=== PATIENT | male | born 1950 | race Caucasian/White ===

== ENCOUNTER 2018-07-06 08:54 | Inpatient (IN) | payer BC, MEDICARE ==
[2018-07-06] MEDS ORDERED: BISACODYL 10 MG SUPP PR (09:45)
[2018-07-06] MEDS ORDERED: ONDANSETRON 4MG/2ML VIAL (J2405) IV (09:45)
[2018-07-06 10:31] LABS: BEDSIDE GLUCOSE 520 MG/DL (80-115)
[2018-07-06] MEDS: INSULIN IV RATE CHANGE DOCUMENTATION ML/HR XX ×4 (10:40→15:23)
[2018-07-06] MEDS ORDERED: DEXTROSE 50% 50 ML SYRINGE IV (10:45)
[2018-07-06] MEDS ORDERED: GLUCOSE 4 GM CHEW TABLET PO (10:45)
[2018-07-06] MEDS ORDERED: GLUCAGON FOR INJ 1 MG VIAL (J1610) SC (10:45)
[2018-07-06] MEDS ORDERED: INSULIN HUMAN REGULAR 100 UNITS in NS 99 ML IV (11:00)
[2018-07-06 11:08] LABS: ALBUMIN 2.9 GM/DL (3.2-5.2); ALKALINE PHOSPHATASE 651 U/L (45-117); ALT/SGPT 92 U/L (12-78); ANION GAP 9 MEQ/L (8-16); AST/SGOT 54 U/L (7-37); BILIRUBIN,TOTAL 0.5 MG/DL (0.2-1.0); BLOOD UREA NITROGEN 78 MG/DL (7-18); CALCIUM LEVEL 8.9 MG/DL (8.8-10.2); CARBON DIOXIDE LEVEL 29 MEQ/L (21-32); CHLORIDE LEVEL 116 MEQ/L (98-107); CREATININE FOR GFR 2.39 MG/DL (0.70-1.30); GLOMERULAR FILTRATION RATE 29.1 (>49); GLUCOSE, FASTING 562 MG/DL (70-100); LIPASE 169 U/L (73-393); PHOSPHORUS LEVEL 4.4 MG/DL (2.5-4.9); SODIUM LEVEL 154 MEQ/L (136-145); TOTAL PROTEIN 7.7 GM/DL (6.4-8.2)
[2018-07-06] MEDS: INSULIN HUMAN REGULAR 100 UNITS in NS 99 ML IV (11:29)
[2018-07-06] MEDS: NS 1,000 ML IV ×3 (11:29→23:13)
[2018-07-06 11:37] LABS: BEDSIDE GLUCOSE 488 MG/DL (80-115)
[2018-07-06 12:27] LABS: BEDSIDE GLUCOSE 398 MG/DL (80-115)
[2018-07-06 12:31] LABS: ANION GAP 7 MEQ/L (8-16); BLOOD UREA NITROGEN 81 MG/DL (7-18); CARBON DIOXIDE LEVEL 29 MEQ/L (21-32); CHLORIDE LEVEL 117 MEQ/L (98-107); CREATININE FOR GFR 2.47 MG/DL (0.70-1.30); GLUCOSE, FASTING 469 MG/DL (70-100); POTASSIUM SERUM 3.9 MEQ/L (3.5-5.1); SODIUM LEVEL 153 MEQ/L (136-145)
[2018-07-06 13:25] LABS: BEDSIDE GLUCOSE 397 MG/DL (80-115)
[2018-07-06 14:05] LABS: ANION GAP 8 MEQ/L (8-16); BLOOD UREA NITROGEN 80 MG/DL (7-18); CALCIUM LEVEL 9.1 MG/DL (8.8-10.2); CARBON DIOXIDE LEVEL 31 MEQ/L (21-32); CHLORIDE LEVEL 117 MEQ/L (98-107); CREATININE FOR GFR 2.49 MG/DL (0.70-1.30); GLOMERULAR FILTRATION RATE 27.8 (>49); GLUCOSE, FASTING 384 MG/DL (70-100); POTASSIUM SERUM 3.9 MEQ/L (3.5-5.1); SODIUM LEVEL 156 MEQ/L (136-145)
[2018-07-06 14:14] LABS: BEDSIDE GLUCOSE 351 MG/DL (80-115)
[2018-07-06] MEDS: HEPARIN SOD (PORCINE) 5000 UNITS/ML VIAL SC ×2 (14:16→21:06)
[2018-07-06] MEDS ORDERED: LEVEMIR (INSULIN DETEMIR) 1 UNITS/0.01ML As Ordered (15:10)
[2018-07-06] MEDS: LEVEMIR (INSULIN DETEMIR) 1 UNITS/0.01ML SC (15:11)
[2018-07-06 15:24] LABS: BEDSIDE GLUCOSE 296 MG/DL (80-115)
[2018-07-06] MEDS: MUPIROCIN 2% OINT 22 GM TUBE TOP (15:35)
[2018-07-06 15:51] LABS: ESTIMATED AVERAGE GLUCOSE 266 MG/DL (60-110); HEMOGLOBIN A1c 10.9 %
[2018-07-06 15:55] LABS: ACETONE/KETONE 0.83 MG/DL (<2.81); ANION GAP 7 MEQ/L (8-16); BLOOD UREA NITROGEN 79 MG/DL (7-18); CALCIUM LEVEL 8.9 MG/DL (8.8-10.2); CARBON DIOXIDE LEVEL 28 MEQ/L (21-32); CHLORIDE LEVEL 120 MEQ/L (98-107); GLUCOSE, FASTING 306 MG/DL (70-100); POTASSIUM SERUM 4.1 MEQ/L (3.5-5.1); SODIUM LEVEL 155 MEQ/L (136-145)
[2018-07-06 16:00] LABS: OSMOLALITY SERUM 360 MOSM/KG (280-301)
[2018-07-06 16:31] LABS: BEDSIDE GLUCOSE 269 MG/DL (80-115)
[2018-07-06 17:26] LABS: BEDSIDE GLUCOSE 235 MG/DL (80-115)
[2018-07-06] MEDS: HumaLOG INSULIN (NovoLOG) PER UNIT SC ×2 (17:44→21:05)
[2018-07-06] MEDS: amLODIPine 10 MG TAB PO (17:44)
[2018-07-06 17:56] LABS: ANION GAP 4 MEQ/L (8-16); BLOOD UREA NITROGEN 81 MG/DL (7-18); CALCIUM LEVEL 9.2 MG/DL (8.8-10.2); CARBON DIOXIDE LEVEL 32 MEQ/L (21-32); CHLORIDE LEVEL 120 MEQ/L (98-107); CREATININE FOR GFR 2.22 MG/DL (0.70-1.30); GLOMERULAR FILTRATION RATE 31.7 (>49); GLUCOSE, FASTING 261 MG/DL (70-100); POTASSIUM SERUM 4.2 MEQ/L (3.5-5.1); SODIUM LEVEL 156 MEQ/L (136-145)
[2018-07-06 18:37] LABS: SODIUM,RANDOM URINE 12 MEQ/L
[2018-07-06 19:52] LABS: ANION GAP 8 MEQ/L (8-16); BLOOD UREA NITROGEN 76 MG/DL (7-18); CALCIUM LEVEL 9.1 MG/DL (8.8-10.2); CARBON DIOXIDE LEVEL 28 MEQ/L (21-32); CHLORIDE LEVEL 118 MEQ/L (98-107); GLUCOSE, FASTING 298 MG/DL (70-100); POTASSIUM SERUM 3.9 MEQ/L (3.5-5.1); SODIUM LEVEL 154 MEQ/L (136-145)
[2018-07-06] MEDS: SIMVASTATIN 20 MG TAB PO (20:03)
[2018-07-06] MEDS: TAMSULOSIN 0.4 MG CAP PO (20:04)
[2018-07-06 20:57] LABS: BEDSIDE GLUCOSE 277 MG/DL (80-115)
[2018-07-06] MEDS ORDERED: ENTER DRUG NAME HERE (PATIENT'S OWN MED) OU (21:00)
[2018-07-07] MEDS: NS 1,000 ML IV (05:02)
[2018-07-07] MEDS: HEPARIN SOD (PORCINE) 5000 UNITS/ML VIAL SC ×3 (05:02→21:27)
[2018-07-07 05:06] LABS: HEMATOCRIT 40.9 % (42.0-52.0); HEMOGLOBIN 13.1 g/dl (13.5-17.5); MEAN CORPUSCULAR HEMOGLOBIN 30.5 pg (27.0-33.0); MEAN CORPUSCULAR VOLUME 95.1 fl (80.0-96.0); PLATELET COUNT, AUTOMATED 199 10^3/uL (150-450); RED CELL DISTRIBUTION WIDTH 13.2 % (11.5-14.5); WHITE BLOOD COUNT 13.3 10^3/uL (4.0-10.0)
[2018-07-07 05:31] LABS: ALBUMIN 2.7 GM/DL (3.2-5.2); ALBUMIN/GLOBULIN RATIO 0.79 (1.00-1.93); ALKALINE PHOSPHATASE 528 U/L (45-117); ALT/SGPT 94 U/L (12-78); ANION GAP 8 MEQ/L (8-16); AST/SGOT 92 U/L (7-37); BILIRUBIN,TOTAL 0.5 MG/DL (0.2-1.0); BLOOD UREA NITROGEN 76 MG/DL (7-18); CALCIUM LEVEL 8.4 MG/DL (8.8-10.2); CARBON DIOXIDE LEVEL 26 MEQ/L (21-32); CHLORIDE LEVEL 119 MEQ/L (98-107); CREATININE FOR GFR 1.84 MG/DL (0.70-1.30); GLOMERULAR FILTRATION RATE 39.4 (>49); GLUCOSE, FASTING 350 MG/DL (70-100); POTASSIUM SERUM 4.5 MEQ/L (3.5-5.1); SODIUM LEVEL 153 MEQ/L (136-145); TOTAL PROTEIN 6.1 GM/DL (6.4-8.2)
[2018-07-07] MEDS: HumaLOG INSULIN (NovoLOG) PER UNIT SC ×4 (08:29→21:27)
[2018-07-07] MEDS: LEVEMIR (INSULIN DETEMIR) 1 UNITS/0.01ML SC ×2 (08:29→21:28)
[2018-07-07] MEDS: amLODIPine 10 MG TAB PO (08:31)
[2018-07-07] MEDS: LR 1,000 ML IV ×4 (08:31→23:40)
[2018-07-07] MEDS: MUPIROCIN 2% OINT 22 GM TUBE TOP (08:32)
[2018-07-07 12:42] LABS: BEDSIDE GLUCOSE 492 MG/DL (80-115)
[2018-07-07 16:50] LABS: BEDSIDE GLUCOSE 386 MG/DL (80-115)
[2018-07-07 21:16] LABS: BEDSIDE GLUCOSE 308 MG/DL (80-115)
[2018-07-07] MEDS: TAMSULOSIN 0.4 MG CAP PO (21:26)
[2018-07-08] MEDS: HEPARIN SOD (PORCINE) 5000 UNITS/ML VIAL SC ×3 (05:31→21:08)
[2018-07-08 06:04] LABS: HEMATOCRIT 35.6 % (42.0-52.0); HEMOGLOBIN 12.2 g/dl (13.5-17.5); MEAN CORPUSCULAR HEMOGLOBIN 30.8 pg (27.0-33.0); MEAN CORPUSCULAR HGB CONC 34.3 g/dl (32.0-36.5); MEAN CORPUSCULAR VOLUME 89.9 fl (80.0-96.0); PLATELET COUNT, AUTOMATED 159 10^3/uL (150-450); RED BLOOD COUNT 3.96 10^6/uL (4.30-6.10); WHITE BLOOD COUNT 8.4 10^3/uL (4.0-10.0)
[2018-07-08] MEDS: LR 1,000 ML IV (06:09)
[2018-07-08 06:37] LABS: ALBUMIN 2.3 GM/DL (3.2-5.2); ALBUMIN/GLOBULIN RATIO 0.66 (1.00-1.93); ALKALINE PHOSPHATASE 493 U/L (45-117); ALT/SGPT 104 U/L (12-78); ANION GAP 8 MEQ/L (8-16); AST/SGOT 99 U/L (7-37); BILIRUBIN,TOTAL 0.7 MG/DL (0.2-1.0); BLOOD UREA NITROGEN 40 MG/DL (7-18); CALCIUM LEVEL 8.3 MG/DL (8.8-10.2); CARBON DIOXIDE LEVEL 27 MEQ/L (21-32); CHLORIDE LEVEL 114 MEQ/L (98-107); CREATININE FOR GFR 1.15 MG/DL (0.70-1.30); GLOMERULAR FILTRATION RATE > 60.0 (>49); GLUCOSE, FASTING 262 MG/DL (70-100); POTASSIUM SERUM 3.7 MEQ/L (3.5-5.1); SODIUM LEVEL 149 MEQ/L (136-145); TOTAL PROTEIN 5.8 GM/DL (6.4-8.2)
[2018-07-08] MEDS: MUPIROCIN 2% OINT 22 GM TUBE TOP (09:00)
[2018-07-08] MEDS: amLODIPine 10 MG TAB PO (09:07)
[2018-07-08] MEDS: LEVEMIR (INSULIN DETEMIR) 1 UNITS/0.01ML SC ×2 (09:07→21:09)
[2018-07-08] MEDS: HumaLOG INSULIN (NovoLOG) PER UNIT SC ×4 (10:32→21:09)
[2018-07-08] MEDS: hydroCHLOROthiazide 12.5 MG CAPSULE PO (11:09)
[2018-07-08] MEDS: LOSARTAN 50 MG TAB PO (11:10)
[2018-07-08 11:57] LABS: BEDSIDE GLUCOSE 278 MG/DL (80-115)
[2018-07-08 14:20] LABS: BEDSIDE GLUCOSE > 600 MG/DL (80-115)
[2018-07-08 20:28] LABS: BEDSIDE GLUCOSE 276 MG/DL (80-115)
[2018-07-08] MEDS: LUMIGAN 0.01% EYE DROPS (PATIENT'S OWN MED) OU (21:07)
[2018-07-08] MEDS: ACETAMINOPHEN TAB 650MG DOSE (2X325MG) PO (21:08)
[2018-07-08] MEDS: TAMSULOSIN 0.4 MG CAP PO (21:08)
[2018-07-09] MEDS: HEPARIN SOD (PORCINE) 5000 UNITS/ML VIAL SC (06:22)
[2018-07-09 06:32] LABS: HEMATOCRIT 35.1 % (42.0-52.0); HEMOGLOBIN 12.2 g/dl (13.5-17.5); MEAN CORPUSCULAR HGB CONC 34.8 g/dl (32.0-36.5); MEAN CORPUSCULAR VOLUME 89.1 fl (80.0-96.0); PLATELET COUNT, AUTOMATED 139 10^3/uL (150-450); RED BLOOD COUNT 3.94 10^6/uL (4.30-6.10); RED CELL DISTRIBUTION WIDTH 11.9 % (11.5-14.5); WHITE BLOOD COUNT 8.5 10^3/uL (4.0-10.0)
[2018-07-09 07:04] LABS: ALBUMIN 2.4 GM/DL (3.2-5.2); ALBUMIN/GLOBULIN RATIO 0.65 (1.00-1.93); ALKALINE PHOSPHATASE 576 U/L (45-117); ALT/SGPT 115 U/L (12-78); ANION GAP 6 MEQ/L (8-16); AST/SGOT 102 U/L (7-37); BILIRUBIN,TOTAL 0.8 MG/DL (0.2-1.0); BLOOD UREA NITROGEN 26 MG/DL (7-18); CALCIUM LEVEL 8.4 MG/DL (8.8-10.2); CARBON DIOXIDE LEVEL 30 MEQ/L (21-32); CHLORIDE LEVEL 110 MEQ/L (98-107); CREATININE FOR GFR 1.04 MG/DL (0.70-1.30); GLOMERULAR FILTRATION RATE > 60.0 (>49); GLUCOSE, FASTING 207 MG/DL (70-100); POTASSIUM SERUM 3.5 MEQ/L (3.5-5.1); SODIUM LEVEL 146 MEQ/L (136-145); TOTAL PROTEIN 6.1 GM/DL (6.4-8.2)
[2018-07-09] MEDS: LOSARTAN 50 MG TAB PO (08:27)
[2018-07-09] MEDS: hydroCHLOROthiazide 12.5 MG CAPSULE PO (08:27)
[2018-07-09] MEDS: amLODIPine 10 MG TAB PO (08:28)
[2018-07-09] MEDS: LEVEMIR (INSULIN DETEMIR) 1 UNITS/0.01ML SC (08:28)
[2018-07-09] MEDS: HumaLOG INSULIN (NovoLOG) PER UNIT SC (08:28)
[2018-07-09] MEDS: MUPIROCIN 2% OINT 22 GM TUBE TOP (08:29)
[2018-07-09 11:28] LABS: BEDSIDE GLUCOSE 389 MG/DL (80-115)
[2018-07-10 23:13] LABS: BEDSIDE GLUCOSE 351 MG/DL (80-115)
[2018-07-10 23:13] LABS: BEDSIDE GLUCOSE 213 MG/DL (80-115)
== END 2018-07-09 11:32 | disposition home or self-care (01) | DRG 420 ==
LOC: M MSPAV 07-07 09:52 → M ICU 08:54
PROVIDERS: Hospitalist
DX: E11.00 Type 2 diabetes mellitus with hyperosmolarity without nonketotic hyperglycemic-hyperosmolar coma (NKHHC) (principal); E87.0 Hyperosmolality and hypernatremia; N17.9 Acute kidney failure, unspecified; C78.7 Secondary malignant neoplasm of liver and intrahepatic bile duct; C79.02 Secondary malignant neoplasm of left kidney and renal pelvis; C25.1 Malignant neoplasm of body of pancreas; R74.0 Nonspecific elevation of levels of transaminase and lactic acid dehydrogenase [LDH]; I10 Essential (primary) hypertension; E78.5 Hyperlipidemia, unspecified; N40.0 Benign prostatic hyperplasia without lower urinary tract symptoms; Z66 Do not resuscitate; H26.9 Unspecified cataract; Z79.84 Long term (current) use of oral hypoglycemic drugs; Z88.8 Allergy status to other drugs, medicaments and biological substances; Z79.899 Other long term (current) drug therapy